=== PATIENT | female | born 1960 | race Caucasian/White ===

== ENCOUNTER 2020-02-26 11:01 | Emergency (ER) | payer MEDICAID ==
[~2020-02-26] VITALS: Ht 172.7 cm; Wt 67.0 kg
[~2020-02-26 11:01] MED LIST: LORA10TA65 PO; NO HOME MEDS
[2020-02-26 11:42] LABS: BASOPHILS # (AUTO) 0.1 X10'3 (0-0.2); EOSINOPHILS # (AUTO) 0.1 X10'3 (0-0.9); EOSINOPHILS % (AUTO) 2.4 % (0-6); HEMOGLOBIN 13.3 g/dl (12.0-16.0); LYMPHOCYTES # (AUTO) 1.1 X10'3 (1.1-4.8); LYMPHOCYTES % (AUTO) 19.3 % (21-51); MEAN CORPUSCULAR HEMOGLOBIN 28.8 PG (27.0-31.0); MEAN CORPUSCULAR HGB CONC 32.5 g/dL (33.0-36.5); MEAN CORPUSCULAR VOLUME 88.6 FL (78-98); MEAN PLATELET VOLUME 7.8 FL (7.4-10.4); MONOCYTES # (AUTO) 0.5 X10'3 (0-0.9); MONOCYTES % (AUTO) 8.7 % (2-12); NEUTROPHILS % (AUTO) 68.6 % (42-75); PLATELET COUNT 260 X10'3 (140-440); RED BLOOD COUNT 4.63 X10'6 (4.20-5.60); RED CELL DISTRIBUTION WIDTH 12.9 % (11.5-14.5); WHITE BLOOD COUNT 5.9 X10'3 (4.5-11.0)
[2020-02-26] MEDS ORDERED: predniSONE 20 mg tablet PO ONE (11:55)
[2020-02-26] MEDS ORDERED: diphenhydrAMINE 25mg capsule PO ONE (11:55)
--- NOTE | 2020-02-26 11:55 | NUR ---
hx: shingles for past 2 mos. states, just not feeling well. throat swelling , hard to swallow.
[2020-02-26 12:29] LABS: ALANINE AMINOTRANSFERASE 19 U/L (12-78); ALBUMIN 3.1 G/DL (3.4-5.0); ALBUMIN/GLOBULIN RATIO 0.8 (1.1-1.5); ALKALINE PHOSPHATASE 61 IU/L (46-116); ANION GAP 8 (8-16); ASPARTATE AMINO TRANSFERASE 27 U/L (10-37); BILIRUBIN,TOTAL 0.3 MG/DL (0.1-1.0); BLOOD UREA NITROGEN 15 MG/DL (7-18); BUN/CREATININE RATIO 19.7 (6.6-38.0); CALCIUM 8.7 MG/DL (8.5-10.1); CHLORIDE 109 MMOL/L (99-107); CREATININE 0.76 MG/DL (0.40-0.90); GLUCOSE 91 MG/DL (70-104); POTASSIUM 4.2 MMOL/L (3.5-5.1); SODIUM 143 MMOL/L (135-145); eGFR 78 ML/MIN
[2020-02-26] MEDS ORDERED: PRED20TA PO (12:57)
[2020-02-26 13:13] VITALS: BP 131/77
== END 2020-02-26 13:12 | disposition home or self-care (01) ==
LOC: ER 11:02
DX: T78.40XA Allergy, unspecified, initial encounter (principal); R42 Dizziness and giddiness; R22.1 Localized swelling, mass and lump, neck; H53.8 Other visual disturbances; X58.XXXA Exposure to other specified factors, initial encounter
CPT/HCPCS: 36415; 71045; 80053; 84484; 85025; 93005; 99285; J7512; Q0163

== ENCOUNTER 2021-01-19 20:37 | Emergency (ER) | payer MEDICAID ==
[~2021-01-19] VITALS: Ht 172.7 cm; Wt 81.8 kg
[2021-01-19 20:59] VITALS: BP 143/84
[2021-01-19] MEDS ORDERED: acetaminophen 325mg tablet PO ONE (22:50)
[2021-01-20] MEDS ORDERED: diazepam 5mg tablet PO ONE (00:10)
[2021-01-20] MEDS ORDERED: DIAZ5TAB4 PO (00:19)
== END 2021-01-20 00:42 | disposition home or self-care (01) ==
LOC: ER 20:38
DX: S32.010A Wedge compression fracture of first lumbar vertebra, initial encounter for closed fracture (principal); M62.838 Other muscle spasm; Z79.899 Other long term (current) drug therapy; X58.XXXA Exposure to other specified factors, initial encounter; Y93.89 Activity, other specified; Y92.89 Other specified places as the place of occurrence of the external cause; Y99.8 Other external cause status
CPT/HCPCS: 72131; 72192; 99285

== ENCOUNTER 2023-01-24 11:32 | Emergency (ER) | payer MEDICAID ==
[~2023-01-24] VITALS: Ht 172.7 cm; Wt 68.6 kg
[~2023-01-24 11:32] MED LIST changes: +DIAZ5TAB4 PO
[2023-01-24 11:41] VITALS: BP 133/63
[2023-01-24] MEDS ORDERED: TETanus/Pertussis (Acell)/Diphther VAC/PF (Tdap-Adult) 0.5ml syringe IMVAC ONE (13:55)
[2023-01-24] MEDS ORDERED: HYDROcodone/acetaminophen 5mg/325mg tablet PO ONE (13:55)
[2023-01-24] MEDS ORDERED: LIDOcaine 1% 30ml preserv. free vial IJ ONE (13:55)
[2023-01-24] MEDS ORDERED: bacitracin 15gm ointment TP ONE (13:55)
[2023-01-24] MEDS ORDERED: amox tr/potassium clavulanate 875/125mg TAB PO ONE (15:40)
[2023-01-24] MEDS ORDERED: AMOX-117 PO (15:40)
[2023-01-24] MEDS ORDERED: NAPR-56 PO (15:41)
== END 2023-01-24 16:07 | disposition home or self-care (01) ==
LOC: ER 11:32
DX: S61.452A Open bite of left hand, initial encounter (principal); S61.451A Open bite of right hand, initial encounter; S51.852A Open bite of left forearm, initial encounter; S51.851A Open bite of right forearm, initial encounter; W55.01XA Bitten by cat, initial encounter; Y93.89 Activity, other specified; Y92.89 Other specified places as the place of occurrence of the external cause; Y99.8 Other external cause status
CPT/HCPCS: 73090; 73130; 90471; 90715; 99284; A6258

== ENCOUNTER 2024-05-05 06:13 | Outpatient (CLI) | payer MEDICAID | END 2024-05-05 23:59 | disposition home or self-care (01) | LOC: MRI02 06:13 | PROVIDERS: ATTEND Nurse Practitioner Family | DX: M51.34 Other intervertebral disc degeneration, thoracic region (principal); M48.04 Spinal stenosis, thoracic region; M48.55XA Collapsed vertebra, not elsewhere classified, thoracolumbar region, initial encounter for fracture; M40.294 Other kyphosis, thoracic region | CPT/HCPCS: 72146 ==

== ENCOUNTER 2025-07-12 15:32 | Outpatient (CLI) | payer MEDICAID ==
[2025-07-12 16:10] LABS: MEAN PLATELET VOLUME 7.9 FL (7.4-10.4); RED CELL DISTRIBUTION WIDTH 12.9 % (11.5-14.5)
[2025-07-12 16:27] LABS: CREATININE 0.69 MG/DL (0.40-0.90); eGFR 86 ML/MIN
== END 2025-07-12 23:59 | disposition home or self-care (01) ==
LOC: RAD 15:32
DX: M33.13 Other dermatomyositis without myopathy (principal); Z79.899 Other long term (current) drug therapy
CPT/HCPCS: 36415; 82247; 82550; 82565; 84075; 84450; 84460; 84520; 85025; 85651; 86140